=== PATIENT | male | born 1990 | race Caucasian/White ===

== ENCOUNTER → 2017-04-07 | Outpatient (CLI) | payer OTHER ==
[2017-04-07 18:36] LABS: ALBUMIN 4.2 g/dL (3.5-5.0); BUN/CREATININE RATIO 18.8 (6.0-26.0); POTASSIUM 3.9 mmol/L (3.6-5.0); TOTAL BILIRUBIN 0.2 mg/dL (0.2-1.3); TOTAL PROTEIN 7.9 g/dL (6.3-8.2)
[2017-04-07 20:09] LABS: HEMATOCRIT 43.6 % (42.0-52.0); HEMOGLOBIN 14.2 g/dL (13.5-18.0); MEAN PLATELET VOLUME 9.6 fl (7.4-10.4); RED BLOOD COUNT 5.07 M/mm3 (4.20-5.60); RED CELL DISTRIBUTION WIDTH 13.8 % (11.5-14.5); WHITE BLOOD COUNT 8.9 K/mm3 (4.8-10.8)
[2017-04-08 16:14] LABS: TESTOSTERONE 221 ng/dL (240-871)
== END ==
LOC: LAB 16:56
PROVIDERS: Family Medicine
DX: E66.9 Obesity, unspecified (principal); R73.9 Hyperglycemia, unspecified; R79.89 Other specified abnormal findings of blood chemistry

== ENCOUNTER → 2017-06-28 | Outpatient (CLI) | payer OTHER | LOC: LAB 16:45 | DX: E03.9 Hypothyroidism, unspecified (principal) ==

== ENCOUNTER → 2017-09-20 | Outpatient (CLI) | payer OTHER | LOC: LAB 09:04 | DX: J02.8 Acute pharyngitis due to other specified organisms (principal) ==

== ENCOUNTER → 2018-01-24 | Outpatient (CLI) | payer OTHER | LOC: LAB 13:20 | DX: E03.9 Hypothyroidism, unspecified (principal) ==

== ENCOUNTER → 2018-02-02 | Outpatient (CLI) | payer OTHER | LOC: RAD 15:59 | DX: D17.1 Benign lipomatous neoplasm of skin and subcutaneous tissue of trunk (principal); D17.22 Benign lipomatous neoplasm of skin and subcutaneous tissue of left arm ==

== ENCOUNTER → 2018-10-19 | Outpatient (CLI) | payer OTHER ==
[2018-10-19 14:57] LABS: EOS # 0.2 (0.04-0.40); EOS % 2.5 % (0.0-4.0); HEMOGLOBIN 13.7 g/dL (13.5-18.0); LYMPH# 3.1 (1.50-4.00); MEAN CELL VOLUME 84 fl (78-100); MEAN CORPUSCULAR HEMOGLOBIN 28 pg (27-31); MEAN CORPUSCULAR HGB CONC 33 g/dL (33-37); MEAN PLATELET VOLUME 9.2 fl (7.4-10.4); MONO # 0.8 (0.20-0.80); NEU # 4.1 (1.40-6.50); PLATELET COUNT 387 K/mm3 (130-400); RED BLOOD COUNT 4.89 M/mm3 (4.20-5.60); RED CELL DISTRIBUTION WIDTH 13.8 % (11.5-14.5); WHITE BLOOD COUNT 8.3 K/mm3 (4.8-10.8)
[2018-10-19 15:05] LABS: ALBUMIN 4.3 g/dL (3.5-5.0); POTASSIUM 3.8 mmol/L (3.5-5.1)
[2018-10-19 15:06] LABS: CALCIUM 9.6 mg/dL (8.3-10.5)
[2018-10-19 15:08] LABS: TOTAL PROTEIN 7.9 g/dL (6.4-8.3)
[2018-10-19 15:09] LABS: TOTAL BILIRUBIN 0.4 mg/dL (0.2-1.2)
== END ==
LOC: LAB 14:23
PROVIDERS: Family Medicine
DX: Z00.00 Encounter for general adult medical examination without abnormal findings (principal); E03.9 Hypothyroidism, unspecified

== ENCOUNTER 2018-12-21 06:40 | Emergency (ER) | payer OTHER ==
[~2018-12-21] VITALS: Ht 180.3 cm; Wt 140.9 kg
[2018-12-21] MEDS ORDERED: ZYRTEC ALLERGY10 MG PO (06:58)
[2018-12-21] MEDS ORDERED: TIROSINT50 MC1 PO (06:58)
[2018-12-21 07:40] LABS: EOS # 0.2 (0.04-0.40); EOS % 3.3 % (0.0-4.0); HEMATOCRIT 39.2 % (42.0-52.0); HEMOGLOBIN 13.2 g/dL (13.5-18.0); LYMPH# 2.1 (1.50-4.00); MEAN CELL VOLUME 85 fl (78-100); MEAN CORPUSCULAR HEMOGLOBIN 29 pg (27-31); MEAN CORPUSCULAR HGB CONC 34 g/dL (33-37); MONO # 0.7 (0.20-0.80); PLATELET COUNT 356 K/mm3 (130-400); RED BLOOD COUNT 4.62 M/mm3 (4.20-5.60); RED CELL DISTRIBUTION WIDTH 13.7 % (11.5-14.5)
[2018-12-21 07:49] LABS: ALBUMIN 4.1 g/dL (3.5-5.0); POTASSIUM 4.2 mmol/L (3.5-5.1); SODIUM 139 mmol/L (136-145)
[2018-12-21 07:50] LABS: CALCIUM 9.1 mg/dL (8.3-10.5)
[2018-12-21 07:51] LABS: GLUCOSE 83 mg/dL (75-110); TOTAL PROTEIN 7.5 g/dL (6.4-8.3)
[2018-12-21 07:52] LABS: CARBON DIOXIDE 26 mmol/L (22-29)
[2018-12-21 07:53] LABS: TOTAL BILIRUBIN 0.3 mg/dL (0.2-1.2)
[2018-12-21 07:57] LABS: AST-SGOT 21 U/L (5-34)
[2018-12-21 07:58] LABS: ALT/SGPT 53 U/L (0-55)
[2018-12-21 08:02] LABS: D-DIMER 0.42 mg/L FEU (0.15-0.50)
[2018-12-21 08:04] LABS: TROPONIN-I < 0.03 ng/mL (<0.030)
[2018-12-21] MEDS ORDERED: GOOD NEIGHBOR M25 M1 PO (08:48)
[2018-12-21] MEDS ORDERED: FLUTICASONE P15.8 ML NS (08:48)
[2018-12-21 09:04] VITALS: BP 130/67
== END 2018-12-21 08:56 | disposition home or self-care (01) ==
LOC: ED 06:40
PROVIDERS: Physician Assistant
DX: R42 Dizziness and giddiness (principal); R07.81 Pleurodynia; E03.9 Hypothyroidism, unspecified; F17.290 Nicotine dependence, other tobacco product, uncomplicated; Z90.49 Acquired absence of other specified parts of digestive tract
CPT/HCPCS: J2930

== ENCOUNTER → 2019-01-23 | Outpatient (CLI) | payer OTHER ==
[~2019-01-23] MED LIST: FLUTICASONE P15.8 ML NS; GOOD NEIGHBOR M25 M1 PO; TIROSINT50 MC1 PO; ZYRTEC ALLERGY10 MG PO
[2019-01-23 15:14] LABS: EOS # 0.2 (0.04-0.40); EOS % 2.8 % (0.0-4.0); HEMATOCRIT 44.2 % (42.0-52.0); HEMOGLOBIN 14.4 g/dL (13.5-18.0); LYMPH# 2.9 (1.50-4.00); MEAN CELL VOLUME 85 fl (78-100); MEAN CORPUSCULAR HEMOGLOBIN 28 pg (27-31); MEAN CORPUSCULAR HGB CONC 33 g/dL (33-37); MEAN PLATELET VOLUME 9.3 fl (7.4-10.4); MONO # 0.6 (0.20-0.80); NEU # 3.8 (1.40-6.50); PLATELET COUNT 398 K/mm3 (130-400); RED BLOOD COUNT 5.23 M/mm3 (4.20-5.60); RED CELL DISTRIBUTION WIDTH 14.1 % (11.5-14.5); WHITE BLOOD COUNT 7.5 K/mm3 (4.8-10.8)
[2019-01-23 15:15] LABS: ALBUMIN 4.7 g/dL (3.5-5.0); POTASSIUM 4.1 mmol/L (3.5-5.1)
[2019-01-23 15:16] LABS: CALCIUM 9.9 mg/dL (8.3-10.5)
[2019-01-23 15:18] LABS: TOTAL PROTEIN 8.4 g/dL (6.4-8.3)
[2019-01-23 15:19] LABS: TOTAL BILIRUBIN 0.3 mg/dL (0.2-1.2)
== END ==
LOC: LAB 15:00
PROVIDERS: Family Medicine
DX: D64.9 Anemia, unspecified (principal); R74.0 Nonspecific elevation of levels of transaminase and lactic acid dehydrogenase [LDH]

== ENCOUNTER → 2020-09-04 | Outpatient (CLI) | payer OTHER ==
[2020-09-04 16:25] LABS: BASO # 0.03 (0.02-0.10); EOS # 0.49 (0.04-0.40); EOS % 5.4 % (0.0-4.0); HEMATOCRIT 41.3 % (42.0-52.0); HEMOGLOBIN 13.6 g/dL (13.5-18.0); LYMPH# 2.86 (1.50-4.00); MEAN CELL VOLUME 85 fl (78-100); MEAN CORPUSCULAR HEMOGLOBIN 28 pg (27-31); MEAN CORPUSCULAR HGB CONC 33 g/dL (33-37); MEAN PLATELET VOLUME 8.8 fl (7.4-10.4); MONO # 0.57 (0.20-0.80); NEU # 5.03 (1.40-6.50); PLATELET COUNT 343 K/mm3 (130-400); RED BLOOD COUNT 4.85 M/mm3 (4.20-5.60); RED CELL DISTRIBUTION WIDTH 13.8 % (11.5-14.5)
[2020-09-04 16:32] LABS: ALBUMIN 4.2 g/dL (3.5-5.0); POTASSIUM 4.2 mmol/L (3.5-5.1)
[2020-09-04 16:33] LABS: CALCIUM 9.3 mg/dL (8.3-10.5)
[2020-09-04 16:35] LABS: TOTAL PROTEIN 7.8 g/dL (6.4-8.3)
[2020-09-04 16:37] LABS: TOTAL BILIRUBIN 0.4 mg/dL (0.2-1.2)
== END ==
LOC: LAB 15:51
PROVIDERS: Family Medicine
DX: Z00.00 Encounter for general adult medical examination without abnormal findings (principal); E03.9 Hypothyroidism, unspecified; E78.5 Hyperlipidemia, unspecified

== ENCOUNTER → 2021-10-07 | Outpatient (CLI) | payer OTHER ==
[2021-10-07 12:43] LABS: BASO # 0.03 K/mm3 (0.02-0.10); EOS # 0.17 K/mm3 (0.04-0.40); HEMATOCRIT 43.5 % (42.0-52.0); HEMOGLOBIN 14.4 g/dL (13.5-18.0); LYMPH# 2.99 K/mm3 (1.50-4.00); MEAN CELL VOLUME 87 fl (78-100); MEAN CORPUSCULAR HEMOGLOBIN 29 pg (27-31); MEAN CORPUSCULAR HGB CONC 33 g/dL (33-37); MONO # 0.64 K/mm3 (0.20-0.80); NEU # 4.74 K/mm3 (1.40-6.50); PLATELET COUNT 378 K/mm3 (130-400); RED CELL DISTRIBUTION WIDTH 13.7 % (11.5-14.5); WHITE BLOOD COUNT 8.6 K/mm3 (4.8-10.8)
[2021-10-07 12:51] LABS: ALBUMIN 4.4 g/dL (3.5-5.0); POTASSIUM 4.2 mmol/L (3.5-5.1)
[2021-10-07 12:52] LABS: CALCIUM 9.8 mg/dL (8.3-10.5)
[2021-10-07 12:55] LABS: TOTAL BILIRUBIN 0.4 mg/dL (0.2-1.2)
[2021-10-07 21:57] LABS: CORTISOL RANDOM 9 ug/dL (3-20)
== END ==
LOC: LAB 12:16
PROVIDERS: Family Medicine
DX: Z00.00 Encounter for general adult medical examination without abnormal findings (principal); K21.9 Gastro-esophageal reflux disease without esophagitis; I83.93 Asymptomatic varicose veins of bilateral lower extremities; F32.9 Major depressive disorder, single episode, unspecified; G47.33 Obstructive sleep apnea (adult) (pediatric); E66.9 Obesity, unspecified; E03.9 Hypothyroidism, unspecified; Z72.0 Tobacco use; F90.9 Attention-deficit hyperactivity disorder, unspecified type; E78.5 Hyperlipidemia, unspecified; R73.9 Hyperglycemia, unspecified; E55.9 Vitamin D deficiency, unspecified; R53.83 Other fatigue

== ENCOUNTER → 2022-12-25 | Outpatient (CLI) | payer OTHER ==
[2022-12-25 10:25] LABS: BASO # 0.02 K/mm3 (0.02-0.10); EOS # 0.43 K/mm3 (0.04-0.40); EOS % 5.5 % (0.0-4.0); HEMATOCRIT 40.9 % (42.0-52.0); HEMOGLOBIN 13.5 g/dL (13.5-18.0); LYMPH# 2.51 K/mm3 (1.50-4.00); MEAN CELL VOLUME 87 fl (78-100); MEAN CORPUSCULAR HEMOGLOBIN 29 pg (27-31); MEAN CORPUSCULAR HGB CONC 33 g/dL (33-37); MONO # 0.63 K/mm3 (0.20-0.80); NEU # 4.24 K/mm3 (1.40-6.50); PLATELET COUNT 343 K/mm3 (130-400); RED BLOOD COUNT 4.69 M/mm3 (4.20-5.60); RED CELL DISTRIBUTION WIDTH 13.6 % (11.5-14.5); WHITE BLOOD COUNT 7.8 K/mm3 (4.8-10.8)
[2022-12-25 10:36] LABS: ALBUMIN 4.2 g/dL (3.5-5.0)
[2022-12-25 10:37] LABS: CALCIUM 9.2 mg/dL (8.3-10.5)
[2022-12-25 10:39] LABS: TOTAL PROTEIN 7.4 g/dL (6.4-8.3)
[2022-12-25 10:40] LABS: TOTAL BILIRUBIN 0.4 mg/dL (0.2-1.2)
[2022-12-25 11:30] LABS: ERYTHROCYTE SEDIMENTATION RATE 6 mm/hr (0-15)
== END ==
LOC: RAD 09:50 → LAB 09:50
PROVIDERS: Nurse Practitioner
DX: E03.9 Hypothyroidism, unspecified (principal); E55.9 Vitamin D deficiency, unspecified; R10.32 Left lower quadrant pain
CPT/HCPCS: Q9967

== ENCOUNTER → 2023-01-22 | Outpatient (CLI) | payer OTHER | LOC: RAD 07:46 | DX: M47.816 Spondylosis without myelopathy or radiculopathy, lumbar region (principal); R10.32 Left lower quadrant pain ==

== ENCOUNTER → 2023-06-03 | Outpatient (CLI) | payer OTHER | LOC: LAB 11:37 | DX: F52.21 Male erectile disorder (principal) ==

== ENCOUNTER → 2023-07-16 | Outpatient (CLI) | payer OTHER ==
[~2023-07-16] MED LIST changes: +ACETAMINOPHEN-H1 TA2 PO; +MELOXICAM15 MG PO; +MORGIDOX 1X100100 MG PO; +TYLENOL EXTRA500 M3 PO
[2023-09-07 09:08] LABS: PROLACTIN AMS 9.3
== END ==
LOC: LAB 12:13
PROVIDERS: Nurse Practitioner
DX: R89.1 Abnormal level of hormones in specimens from other organs, systems and tissues (principal)

== ENCOUNTER → 2023-09-08 | Outpatient (CLI) | payer OTHER | LOC: LAB 17:41 | DX: L97.919 Non-pressure chronic ulcer of unspecified part of right lower leg with unspecified severity (principal) ==

== ENCOUNTER → 2023-10-21 | Outpatient (REF) | payer OTHER ==
[~2023-10-21] MED LIST changes: +CIPRO500 M1 PO; +LEVOFLOXACIN750 MG PO
== END ==
LOC: LAB 18:07
DX: L97.915 Non-pressure chronic ulcer of unspecified part of right lower leg with muscle involvement without evidence of necrosis (principal); R60.0 Localized edema

== ENCOUNTER → 2023-10-29 | Outpatient (CLI) | payer OTHER ==
[~2023-10-29] MED LIST changes: +SILDENAFIL CITR50 MG PO; +TESTOSTERONE75 GM TD; +TORSEMIDE10 M1 PO
[2023-10-29 14:48] LABS: ALBUMIN 4.3 g/dL (3.5-5.0)
[2023-10-29 14:49] LABS: CALCIUM 9.4 mg/dL (8.3-10.5)
[2023-10-29 14:51] LABS: TOTAL PROTEIN 7.7 g/dL (6.4-8.3)
[2023-10-29 14:52] LABS: TOTAL BILIRUBIN 0.4 mg/dL (0.2-1.2)
== END ==
LOC: LAB 14:31
PROVIDERS: Nurse Practitioner
DX: R60.0 Localized edema (principal); L97.915 Non-pressure chronic ulcer of unspecified part of right lower leg with muscle involvement without evidence of necrosis; R63.5 Abnormal weight gain; E55.9 Vitamin D deficiency, unspecified; D50.9 Iron deficiency anemia, unspecified

== ENCOUNTER 2023-11-17 14:15 | Outpatient (RCR) | payer OTHER ==
[2023-11-02 08:14] VITALS: BP 140/85
--- NOTE | 2023-11-02 08:48 | NUR ---
See provider note from Viji Herrera APRN for measurements and description of wounds on RLE. Wounds were cleaned with hibiclens and sterile water. dried well. Atractain to reddened area around wounds, Xeroform and Mepitel covering wounds. 2 layer coban lite wrap to RLE
[2023-11-05 11:55] VITALS: BP 133/83
--- NOTE | 2023-11-05 12:31 | NUR ---
PT AMBULATES TO RM 5 FOR OP WOUND CARE TO RLL. PT REMOVED 2 LAYER COMPRESSION WRAPS PRIOR TO ARRIVAL TODAY AND APPLIED LIDOCAINE CREAM TO WOUNDS. STATES HAS LOST ABOUT 10 LB FROM DIURETICS. RT LE MEASUREMENTS NOT REALLY CHANGED MUCH SINCE LAST APPT. PT STATED THAT THE WRAPS KEPT FALLING DOWN ON HIS LEG. WOUNDS ON RLE WERE CLEANED WITH HIBICLENS AND STERILE WATER AND DRIED WELL. SHARP DEBRIDEMENT PERFORMED BY Viji KELLY APRN. MAGNUS COLLAGEN AND mEPILEX BORDER FLEX APPLIED TO BOTH WOUNDS. 2 LAYERS OF TUBIGRIP SIZE F APPLIED TO RT LOWER LEG UP TO KNEE FOR COMPRESSION. SEE PROVIDER NOTE FROM Viji KELLY APRN
[2023-11-09 13:03] VITALS: BP 146/71
--- NOTE | 2023-11-09 13:33 | NUR ---
ARRIVED AMBULATORY FOR OP WOUND CARE. REMOVED EXISTING TUBIGRIP AND DRESSINGS X2 ON RLL. SEE PROVIDER NOTE BY Viji KELLY APRN. PT FORGOT TO APPLY LIDOCAINE PRIOR TO ARRIVAL. APPLIED 2% LIDOCAINE GEL TO ANTERIOR RLL WOUNDSX2 PRIOR TO SHARP DEBRIDEMENT BY Viji KELLY APRN. AFTER DEBRIDING, WOUNDS ARE CLEANED WITH HIBICLENS AND STERILE WATER THEN RINSED AND DRIED WELL. MAGNUS COLLAGEN AND MEPILEX BORDER FLEX DRESSINGS TO BOTH WOUNDS. AND 2 LAYERS OF TUBIGRIP SIZE G APPLIED TO RLL FOR LIGHT COMPRESSION. PT FAIZA WELL.
[2023-11-12 11:58] VITALS: BP 143/88
--- NOTE | 2023-11-12 12:04 | NUR ---
PT ARRIVED AMBULATORY WITH CANE TODAY. 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 WOUNDS APPEAR A BIT SMALLER TODAY. PT STATES THERE WAS VERY LITTLE DRAINAGE ON DRESSINGS. NO SHARP DEBRIDEMENT DONE TODAY. CLEANED WOUND ON RLL WITH HIBICLENS AND STERILE WATER. DRIED WELL. APPLIED MAGNUS COLLAGEN TO WOUND BED AND COVERED WITH MEPILEX BORDER FLEX. SENT EXTRA MEPILEX DRESSINGS HOME WITH PATIENT. FAIZA WELL. APPT MADE FOR PT TO RETURN ON 11/17/23 AT 2PM. SEE PROVIDER NOTE FROM Viji KELLY APRN
[~2023-11-17] VITALS: Ht 180.3 cm; Wt 1750.0 kg
[~2023-11-17 14:15] MED LIST changes: +Lidocaine 2% Jelly 5 GM TUBE TOP ONE
[2023-11-17 14:44] VITALS: BP 131/63
--- NOTE | 2023-11-17 14:53 | NUR ---
PT ARRIVED AMBULATORY WITH CANE. WEARING 2 LAYER TUBIGRIP STOCKING ON RLL. MINIMAL AMOUNT YELLOW DRAINAGE ON OLD DRESSING WHEN REMOVED. SHARP DEBRIDEMENT DONE BY Viji KELLY APRN. CLEANED WITH HIBICLENS. DRIED WELL. SKIN PREP APPLIED TO WOUND EDGES. COLLAGEN MAGNUS APPLIED TO WOUND BED OF BOTH OPEN AREAS AND COVERED WITH AQUACEL EXTRA. SECURED WITH PAPER TAPE. PT PUT TUBIGRIP STOCKINGS BACK ON. GAVE PT DRESSING SUPPLIES TO CHANGE DRESSING ON WEDNESDAY. WILL RETURN FOR WOUND CARE ON 11/23/23.
--- NOTE | 2023-11-17 14:58 | NUR ---
SEE PROVIDER NOTE FROM Viji KELLY APRN FOR MEASUREMENTS. PHOTOS TAKEN TODAY.
[2023-12-08] MEDS ORDERED: ADDERALL 15 MG15 MG PO (10:58)
[2023-12-08] MEDS ORDERED: WELLBUTRIN XL300 M1 PO (10:58)
== END 2023-11-22 | disposition home or self-care (01) ==
LOC: AMSURD
DX: L97.915 Non-pressure chronic ulcer of unspecified part of right lower leg with muscle involvement without evidence of necrosis (principal)
CPT/HCPCS: A6021; A6452

== ENCOUNTER 2023-12-22 11:42 | Outpatient (RCR) | payer OTHER ==
[2023-11-24 12:28] VITALS: BP 144/122
[2023-12-08 10:56] VITALS: BP 150/91
--- NOTE | 2023-12-08 11:00 | NUR ---
PATIENT REPORTS CHANGING DRESSING AT HOME "EVERY OTHER DAY TO EVERY COUPLE DAYS". SURROUNDING SKIN WITH INCREASED ERYTHEMA AND INCREASED BROWN EXUDATE. REPORTS PLACING COLLAGEN IN WOUND BED LAST NIGHT WITH DRESSING CHANGE. LATERAL WOUND TO RIGHT HANNON DEBRIDED WITH 5MM CURETTE. LEFT MEDIAL WOUND RESOLVED. MEASUREMENTS AND PHOTOGRAPHS TAKEN. LEFT LATERAL WOUND CLEASNED WITH HIBICLENSE AND 4X4, MUPIRICON TO SURROUNDING SKIN, MAGNUS COLLAGEN TO WOUND BED, MEPILEX BORDER FOAM. EDUCATION TO CHANGE DRESSING AT HOME DAILY. PATIENT SENT WITH PROPER DRESSING SUPPLIES. PATIENT SCHEDULED FOR Wednesday12/10/23.
--- NOTE | 2023-12-08 11:21 | NUR ---
PATIENT AND HERE FOR WOUND CARE TO LEFT PLANTAR FOOT WOUND. REPORTS PICKING UP ANTIBIOTIC ORDERED WEDNESDAY BY DR. EARL. REPORTS AN INCREASE IN DRAINAGE WAS NOTED ON WEDNESDAY AND SURROUNDING ERYTHEMA INCREASED AND LAST DRESSING CHANGE WAS YESTERDAY. MRI SCHEDULED FOR WEDNESDAY MORNING AT 0800. 6CM OF PACKING REMOVED. PURULENT DRAINAGE NOTED ON DRESSING AND OFFLOADING FELT IN POST OP SHOE. MEASUREMENTS AND PHOTOGRAPHS TAKEN. WOUND DEBRIDED WITH 3MM CURETTE, CLEANSED WITH HIBICLENSE AND DEBRISOFT LOLLI, PACKED WITH 1/4 IN IODOFORM TAPE, HYDROFERA BLUE READY, AND AQUACEL. NEW FELT MEASURED AND PLACE IN POST OP SHOE. SCHEDULED FOR DRESSING CHANGE ON Wednesday12/10/23.
[2023-12-15 14:37] VITALS: BP 141/61
--- NOTE | 2023-12-15 14:56 | NUR ---
See provider note from Viji Herrera APRN.
[~2023-12-22] VITALS: Ht 180.3 cm; Wt 1750.0 kg
[~2023-12-22 11:42] MED LIST changes: +Lidocaine 2% Jelly 5 GM TUBE TOP PRN
[2023-12-22 12:04] VITALS: BP 129/74
--- NOTE | 2023-12-22 12:16 | NUR ---
WOUND TO RLE WITH VY SMALL OPENING NOW. MIN AMT YELLOW DRAINAGE. CLEANED WITH HIBICLENS AND 4X4'S AND STERILE WATER. APPLIED SMALL AMT OF COLLAGEN MAGNUS TO CENTER OF WOUND AND COVERED WITH CLOTH BANDAID. PT WILL CONTINUE TO CARE FOR WOUND AT HOME AND WILL CALL IF WOUND NOT HEALING AND NEEDS FURTHER CARE. SEE PROVIDER NOTE FROM Viji KELLY APRN.
== END 2023-12-23 | disposition home or self-care (01) ==
LOC: AMSURD
DX: L97.915 Non-pressure chronic ulcer of unspecified part of right lower leg with muscle involvement without evidence of necrosis (principal)
CPT/HCPCS: A6021

== ENCOUNTER → 2023-12-22 | Outpatient (CLI) | payer OTHER ==
[~2023-12-22] MED LIST changes: +ADDERALL 15 MG15 MG PO; -Lidocaine 2% Jelly 5 GM TUBE TOP ONE; +WELLBUTRIN XL300 M1 PO
[2023-12-26 05:42] LABS: ALTERNARIA TENUIS CNT <0.10 kU/L (Class 0); ASPERGILLUS FUMIGATUS AL COUNT <0.10 kU/L (Class 0); BERMUDA GRASS ALLERGEN COUNT <0.10 kU/L (Class 0); BOX ELDER-MAPLE ALLERGEN COUNT <0.10 kU/L (Class 0); CAT DANDER ALLERGEN COUNT <0.10 kU/L (Class 0); CLADOSPORIUM ALLERGEN COUNT <0.10 kU/L (Class 0); COCKROACH ALLERGEN COUNT <0.10 kU/L (Class 0); COTTONWOOD TREE ALLERGEN COUNT <0.10 kU/L (Class 0); DOG DANDER ALLERGEN COUNT <0.10 kU/L (Class 0); DUST MITES (D.F.) ALLERG COUNT <0.10 kU/L (Class 0); DUST MITES (D.P.) ALLERG COUNT <0.10 kU/L (Class 0); ELM TREE ALLERGEN COUNT <0.10 kU/L (Class 0); FIREBUSH ALLERGEN COUNT <0.10 kU/L (Class 0); OAK ALLERGEN COUNT <0.10 kU/L (Class 0); ROUGH MARSH ELDER ALLERG COUNT <0.10 kU/L (Class 0); RUSSIAN THISTLE ALLERGEN COUNT <0.10 kU/L (Class 0); SHORT RAGWEED ALLERGEN COUNT <0.10 kU/L (Class 0)
== END ==
LOC: LAB 12:26
PROVIDERS: Nurse Practitioner
DX: R04.0 Epistaxis (principal)